=== PATIENT | male | born 1960 | race Two or more races ===

== ENCOUNTER → 2016-11-22 | Outpatient (CLI) | payer OTHER ==
--- NOTE | 2016-11-22 15:07 | RAD ---
Indication chronic pain. AP and lateral views of the lumbar spine were obtained as well as a coned view targeted to the lumbosacral junction. Vertebral height and alignment are well maintained. There is slight disc space narrowing at L5-S1 and small osteophytes at the same level. There are some minimal degenerative facet changes at L4-5 and L5-S1. IMPRESSION: Mild spondylitic changes involving the lumbar spine
--- NOTE | 2016-11-22 15:09 | RAD ---
Indication chronic pain. AP and lateral views of the cervical spine were obtained as well as 2 odontoid views. C1 through the upper thoracic spine are identified. There is some disc space narrowing at C5-6 with associated osteophyte formation. Minimal disc space narrowing and osteophyte formation is seen at C6-7. An acute bony finding is not seen. The prevertebral soft tissues appear normal. IMPRESSION: Spondylitic changes predominantly centered at C5-6
== END | disposition home or self-care (01) ==
LOC: DXRADRC 14:24
PROVIDERS: ATTEND Family Medicine
DX: M46.96 Unspecified inflammatory spondylopathy, lumbar region (principal); M50.322 Other cervical disc degeneration at C5-C6 level; M50.321 Other cervical disc degeneration at C4-C5 level; M50.323 Other cervical disc degeneration at C6-C7 level
CPT/HCPCS: 72040; 72100